=== PATIENT | male | born 1945 | race Caucasian/White ===

== ENCOUNTER 2021-06-03 05:48 | Inpatient (IN) ==
[2021-06-03] MEDS ORDERED: Naloxone 0.4 MG/ML INJ IVP PRN (09:45)
[2021-06-03] MEDS ORDERED: Ondansetron 4 MG/2 ML VIAL IVP PRN (09:45)
[2021-06-03] MEDS ORDERED: Cefepime HCl 2,000 MG in Water for inj. (sterile) 20 ML IVP SCH (09:53)
[2021-06-03] MEDS ORDERED: Azithromycin 500 MG in 0.9 % Sodium Chloride 250 ML IVPB SCH (10:00)
[2021-06-03 11:30] LABS: Calcium 10.1 mg/dL (8.6-10.3); Potassium 5.7 mEq/L (3.5-5.1)
[2021-06-03] MEDS ORDERED: 0.9 % Sodium Chloride 250 ML IVC PRN (11:36)
[2021-06-03] MEDS ORDERED: *HR* Heparin 10,000 UNIT/10 ML VIAL IV PRN (11:36)
[2021-06-03] MEDS ORDERED: 0.9 % Sodium Chloride 1,000 ML ONE (11:41)
[2021-06-03] MEDS ORDERED: 0.9 % Sodium Chloride 1,000 ML PRIME SCH (11:45)
[2021-06-03 11:55] LABS: Hepatitis B Surface Antibody 397.34 mIU/mL
[2021-06-03 12:06] LABS: Hepatitis B Surface Antigen Nonreactive (Nonreactive)
[2021-06-03] MEDS ORDERED: D5% in Water 1,000 ML IVC PRN (12:09)
[2021-06-03] MEDS ORDERED: *HR* Dextrose 50 % in Water (Vial) 50 ML VIAL IVP PRN (12:09)
[2021-06-03] MEDS ORDERED: Dextrose Gel 15 GM/37.5 ML TUBE PO PRN ×2 (12:09)
[2021-06-03] MEDS: *HR* Heparin 5,000 UNIT/ML VIAL SQ SCH ×2 (17:00→22:24)
[2021-06-03] MEDS: Insulin LISPRO 300 UNITS/3 ML VIAL SUBQ SCH ×2 (17:01→20:36)
[2021-06-03] MEDS: Insulin DETEMIR 100 UNIT/ML X5UNITS SUBQ SCH (17:01)
[2021-06-03] MEDS: Acetaminophen 325 MG TABLET PO PRN (17:02)
[2021-06-03] MEDS: Melatonin 3 MG TABLET PO PRN (23:36)
[2021-06-04] MEDS: Acetaminophen 325 MG TABLET PO PRN ×2 (03:03→21:19)
[2021-06-04 03:12] LABS: Hematocrit 29.4 % (37.5-50.1); Mean Corpuscular HGB Conc 30.6 g/dL (31.6-35.5); Mean Corpuscular Hemoglobin 27.3 pg (28.0-33.3); Mean Corpuscular Volume 89.1 fL (83.0-100.0); Mean Platelet Volume 9.4 fL (9.4-12.4); Platelet Count 165 K/mcL (140-400); Red Cell Distribution Width 15.9 % (11.5-14.5); White Blood Count 8.9 K/mcL (4.3-11.1)
[2021-06-04 03:33] LABS: Calcium 9.6 mg/dL (8.6-10.3); Phosphorous 3.5 mg/dL (2.7-4.5); Potassium 4.4 mEq/L (3.5-5.1)
[2021-06-04] MEDS: *HR* Heparin 5,000 UNIT/ML VIAL SQ SCH ×3 (06:01→21:20)
[2021-06-04] MEDS: Piperacillin/Tazobactam 3.375 GM in 0.9 % Sodium Chloride Mini Bag 100 ML IVPB SCH ×2 (09:40→21:19)
[2021-06-04] MEDS: Renal Vitamin 1 CAP CAPSULE PO SCH (09:42)
[2021-06-04] MEDS: Insulin DETEMIR 100 UNIT/ML X5UNITS SUBQ SCH (10:09)
[2021-06-04] MEDS: Insulin LISPRO 300 UNITS/3 ML VIAL SUBQ SCH ×4 (10:28→21:20)
[2021-06-04] MEDS ORDERED: Azithromycin 500 MG in 0.9 % Sodium Chloride 250 ML IVPB SCH (15:00)
[2021-06-04] MEDS: Melatonin 3 MG TABLET PO PRN (21:19)
[2021-06-05] MEDS: Acetaminophen 325 MG TABLET PO PRN (03:28)
[2021-06-05] MEDS: *HR* Heparin 5,000 UNIT/ML VIAL SQ SCH ×3 (05:34→22:11)
[2021-06-05 05:50] LABS: Basophils % 0.5 %; Eosinophils # 0.1 K/mcL (0.0-0.6); Eosinophils % 1.6 %; Hemoglobin 8.9 g/dL (12.9-16.9); Immature Granulocytes % 0.2 % (0-4); Lymphocytes # 0.8 K/mcL (0.6-4.6); Lymphocytes % 14.5 %; Mean Corpuscular HGB Conc 31.8 g/dL (31.6-35.5); Mean Corpuscular Volume 88.1 fL (83.0-100.0); Mean Platelet Volume 9.6 fL (9.4-12.4); Monocytes # 0.5 K/mcL (0.0-1.3); Monocytes % 9.2 %; Neutrophils # 4.2 K/mcL (1.6-8.9); Platelet Count 152 K/mcL (140-400); Red Blood Count 3.18 M/mcL (4.19-5.50); Red Cell Distribution Width 15.7 % (11.5-14.5); White Blood Count 5.6 K/mcL (4.3-11.1)
[2021-06-05 06:09] LABS: Calcium 9.2 mg/dL (8.6-10.3); Potassium 4.6 mEq/L (3.5-5.1)
[2021-06-05] MEDS: Insulin LISPRO 300 UNITS/3 ML VIAL SUBQ SCH ×4 (07:24→20:29)
[2021-06-05] MEDS ORDERED: 0.9 % Sodium Chloride 250 ML IVC PRN (08:00)
[2021-06-05] MEDS ORDERED: *HR* Heparin 10,000 UNIT/10 ML VIAL IV PRN ×2 (08:00)
[2021-06-05] MEDS ORDERED: 0.9 % Sodium Chloride 1,000 ML PRIME SCH (08:00)
[2021-06-05] MEDS: Insulin DETEMIR 100 UNIT/ML X5UNITS SUBQ SCH (08:27)
[2021-06-05] MEDS: Renal Vitamin 1 CAP CAPSULE PO SCH (08:57)
[2021-06-05] MEDS ORDERED: amLODIPine 5 MG TABLET PO SCH (12:15)
[2021-06-05] MEDS: Piperacillin/Tazobactam 3.375 GM in 0.9 % Sodium Chloride Mini Bag 100 ML IVPB SCH (17:32)
[2021-06-06 03:57] LABS: Basophils % 0.7 %; Eosinophils # 0.1 K/mcL (0.0-0.6); Eosinophils % 1.2 %; Hematocrit 27.6 % (37.5-50.1); Hemoglobin 8.5 g/dL (12.9-16.9); Immature Granulocytes % 0.5 % (0-4); Lymphocytes # 0.6 K/mcL (0.6-4.6); Lymphocytes % 13.8 %; Mean Corpuscular HGB Conc 30.8 g/dL (31.6-35.5); Mean Corpuscular Hemoglobin 27.2 pg (28.0-33.3); Mean Corpuscular Volume 88.2 fL (83.0-100.0); Mean Platelet Volume 9.6 fL (9.4-12.4); Monocytes # 0.3 K/mcL (0.0-1.3); Monocytes % 7.5 %; Neutrophils # 3.1 K/mcL (1.6-8.9); Nucleated Red Blood Cells 0.5 /100 WBC (0); Platelet Count 159 K/mcL (140-400); Red Blood Count 3.13 M/mcL (4.19-5.50); Red Cell Distribution Width 15.6 % (11.5-14.5); Segmented Neutrophils % 76.3 %; White Blood Count 4.1 K/mcL (4.3-11.1)
[2021-06-06 04:15] LABS: Calcium 9.1 mg/dL (8.6-10.3); Magnesium 1.9 mg/dL (1.6-2.6); Potassium 4.9 mEq/L (3.5-5.1)
[2021-06-06] MEDS: Piperacillin/Tazobactam 3.375 GM in 0.9 % Sodium Chloride Mini Bag 100 ML IVPB SCH ×2 (05:08→06:42)
[2021-06-06] MEDS: *HR* Heparin 5,000 UNIT/ML VIAL SQ SCH ×2 (05:09→15:25)
[2021-06-06] MEDS: Acetaminophen 325 MG TABLET PO PRN (05:13)
[2021-06-06] MEDS: Insulin LISPRO 300 UNITS/3 ML VIAL SUBQ SCH ×2 (08:50→12:21)
[2021-06-06] MEDS: Renal Vitamin 1 CAP CAPSULE PO SCH (08:51)
[2021-06-06] MEDS: Insulin DETEMIR 100 UNIT/ML X5UNITS SUBQ SCH (08:51)
[2021-06-06] MEDS ORDERED: amLODIPine 5 MG TABLET PO SCH (09:00)
[2021-06-06 10:57] VITALS: BP 137/50
[2021-06-06] MEDS ORDERED: Tdap (Boostrix) Vaccine 0.5 ML SYRINGE IM ONE (11:09)
== END 2021-06-06 16:20 | disposition home health service (06) | DRG 871 ==
LOC: 2ANU → SUATTDRO 06-04 16:51
PROVIDERS: ADMIT Student in an Organized Health Care Education/Training Program; ATTEND Internal Medicine

== ENCOUNTER 2021-09-16 01:47 | Inpatient (IN) ==
[2021-09-16] MEDS ORDERED: Naloxone 0.4 MG/ML INJ IVP PRN ×2 (04:57→11:26)
[2021-09-16] MEDS ORDERED: Melatonin 3 MG TABLET PO PRN (04:57)
[2021-09-16] MEDS ORDERED: Ondansetron ODT 4 MG TAB.RAPDIS SL PRN (04:57)
[2021-09-16] MEDS ORDERED: Isovue-370 500 ML BOTTLE IVP ONE (05:35)
[2021-09-16] MEDS ORDERED: Ondansetron 4 MG/2 ML VIAL IVP PRN (05:43)
[2021-09-16] MEDS ORDERED: Dextrose Gel 15 GM/37.5 ML TUBE PO PRN ×2 (05:58)
[2021-09-16] MEDS ORDERED: *HR* Dextrose 50 % in Water (Syg) 50 ML SYRINGE IVP PRN (05:58)
[2021-09-16] MEDS ORDERED: D5% in Water 1,000 ML IVC PRN (05:58)
[2021-09-16 06:25] LABS: Hematocrit 30.6 % (37.5-50.1); Hemoglobin 9.5 g/dL (12.9-16.9); Mean Corpuscular Hemoglobin 27.4 pg (28.0-33.3); Mean Corpuscular Volume 88.2 fL (83.0-100.0); Mean Platelet Volume 9.3 fL (9.4-12.4); Platelet Count 176 K/mcL (140-400); Red Blood Count 3.47 M/mcL (4.19-5.50); Red Cell Distribution Width 16.4 % (11.5-14.5); White Blood Count 13.4 K/mcL (4.3-11.1)
[2021-09-16 06:34] LABS: INR 1.4; Prothrombin Time 15.6 Seconds (9.4-12.1)
[2021-09-16 06:36] LABS: Activated Partial Thrombo Time 36.3 Seconds (26.0-36.0)
[2021-09-16 06:44] LABS: Magnesium 1.9 mg/dL (1.6-2.6); Phosphorous 5.6 mg/dL (2.7-4.5)
[2021-09-16 06:45] LABS: Calcium 9.2 mg/dL (8.6-10.3); Potassium 5.9 mEq/L (3.5-5.1)
[2021-09-16] MEDS ORDERED: Calcium Gluconate 1gm/50mL 1 GM/50 ML BAG IVPB ONE (07:41)
[2021-09-16] MEDS ORDERED: Ipratropium/Albuterol Neb 3 ML IH PRN (07:51)
[2021-09-16] MEDS: Insulin LISPRO 300 UNITS/3 ML VIAL SUBQ SCH ×3 (07:55→17:29)
[2021-09-16] MEDS ORDERED: 0.9 % Sodium Chloride 250 ML IVC PRN (08:29)
[2021-09-16] MEDS ORDERED: 0.9 % Sodium Chloride 1,000 ML PRIME SCH (08:30)
[2021-09-16] MEDS ORDERED: Albumin 25% 25gram/100mL 25 GM/100 ML IV.SOLN IVPB STA (10:26)
[2021-09-16] MEDS ORDERED: cefTRIAXone 2,000 MG in Water for inj. (sterile) 20 ML IVP SCH (11:00)
[2021-09-16] MEDS ORDERED: *HR* HYDROcodone/Acet 5/325 mg TABLET PO PRN (11:26)
[2021-09-16] MEDS ORDERED: Acetaminophen 325 MG TABLET PO PRN (11:26)
[2021-09-16] MEDS ORDERED: *HR* OxyCODONE Immed Rel 5 MG TABLET PO PRN (11:26)
[2021-09-16] MEDS ORDERED: MetroNIDAZOLE 500 MG/100 ML 500 MG/100 ML BAG IVPB SCH (12:00)
[2021-09-16] MEDS ORDERED: Albumin 25% 25gram/100mL 25 GM/100 ML IV.SOLN IVPB PRN (13:15)
[2021-09-16 13:20] LABS: Basophils % 0.2 %; Immature Granulocytes % 0.6 % (0-4); Lymphocytes # 0.2 K/mcL (0.6-4.6); Lymphocytes % 1.7 %; Monocytes # 0.6 K/mcL (0.0-1.3); Monocytes % 4.4 %; Neutrophils # 12.7 K/mcL (1.6-8.9); Segmented Neutrophils % 93.1 %
[2021-09-16 13:24] LABS: Immature Reticulocyte % 23.4 % (11.0-38.0); Reticulocyte % 2.8 % (1.6-2.8)
[2021-09-16 13:35] LABS: Uric Acid 3.1 mg/dL (2.3-7.6)
[2021-09-16] MEDS: cefTRIAXone 1,000 MG in Water for inj. (sterile) 10 ML IVP SCH (14:50)
[2021-09-16 16:40] LABS: RBC,Peritoneal Fluid < 2000 RBC/mcL
[2021-09-16 16:59] LABS: Total Protein,Peritoneal Fluid 4.4 g/dL
[2021-09-16] MEDS: MetroNIDAZOLE 500 MG/100 ML 500 MG/100 ML BAG IVPB SCH (17:14)
[2021-09-16 17:31] LABS: Basophils,Peritoneal Fluid 0 %
[2021-09-16 17:32] LABS: Appearance of Peritoneal Fl CLEAR (Clear)
[2021-09-16 19:56] LABS: Adenovirus Not Detected (Not Detect); Bordetella Pertussis Not Detected (Not Detect); Chlamydophila pneumoniae Not Detected (Not Detect); Coronavirus 229E Not Detected (Not Detect); Coronavirus HKU1 Not Detected (Not Detect); Coronavirus NL63 Not Detected (Not Detect); Coronavirus OC43 Not Detected (Not Detect); Human Metapneumovirus Not Detected (Not Detect); Human Rhinovirus/Enterovirus Not Detected (Not Detect); Influenza A Subtype 2009 H1 Not Detected (Not Detect); Influenza B Not Detected (Not Detect); Parainfluenza Virus 1 Not Detected (Not Detect); Parainfluenza Virus 2 Not Detected (Not Detect); Parainfluenza Virus 3 Not Detected (Not Detect); Parainfluenza Virus 4 Not Detected (Not Detect); Respiratory Syncytial Virus Not Detected (Not Detect); SARS-CoV-2 Not Detected (Not Detect)
[2021-09-16 19:57] LABS: Mycoplasma pneumoniae Not Detected (Not Detect)
[2021-09-17] MEDS: Insulin LISPRO 300 UNITS/3 ML VIAL SUBQ SCH ×5 (04:41→21:43)
[2021-09-17] MEDS: MetroNIDAZOLE 500 MG/100 ML 500 MG/100 ML BAG IVPB SCH ×2 (04:45→08:22)
[2021-09-17 07:03] LABS: Basophils % 0.4 %; Eosinophils # 0.1 K/mcL (0.0-0.6); Eosinophils % 1.3 %; Hematocrit 27.2 % (37.5-50.1); Hemoglobin 8.5 g/dL (12.9-16.9); Immature Granulocytes % 0.4 % (0-4); Lymphocytes # 0.7 K/mcL (0.6-4.6); Lymphocytes % 10.6 %; Mean Corpuscular HGB Conc 31.3 g/dL (31.6-35.5); Mean Corpuscular Hemoglobin 27.5 pg (28.0-33.3); Mean Platelet Volume 9.2 fL (9.4-12.4); Monocytes # 0.5 K/mcL (0.0-1.3); Monocytes % 7.7 %; Neutrophils # 5.5 K/mcL (1.6-8.9); Platelet Count 148 K/mcL (140-400); Red Blood Count 3.09 M/mcL (4.19-5.50); Red Cell Distribution Width 16.3 % (11.5-14.5); Segmented Neutrophils % 79.6 %; White Blood Count 6.9 K/mcL (4.3-11.1)
[2021-09-17 07:06] LABS: INR 1.5; Prothrombin Time 16.2 Seconds (9.4-12.1)
[2021-09-17 07:08] LABS: Activated Partial Thrombo Time 33.6 Seconds (26.0-36.0)
[2021-09-17 07:18] LABS: Calcium 9.2 mg/dL (8.6-10.3); Potassium 4.5 mEq/L (3.5-5.1)
[2021-09-17] MEDS: cefTRIAXone 1,000 MG in Water for inj. (sterile) 10 ML IVP SCH (08:21)
[2021-09-17] MEDS: Bicalutamide 50 MG TABLET PO SCH (12:59)
[2021-09-17] MEDS ORDERED: Gadolinium Contrast Agent (WT Based) IV PRN (14:42)
[2021-09-18 01:10] LABS: Basophils % 0.3 %; Eosinophils # 0.1 K/mcL (0.0-0.6); Eosinophils % 1.4 %; Hemoglobin 8.7 g/dL (12.9-16.9); Immature Granulocytes % 0.2 % (0-4); Lymphocytes # 0.6 K/mcL (0.6-4.6); Lymphocytes % 10.1 %; Mean Corpuscular HGB Conc 31.1 g/dL (31.6-35.5); Mean Corpuscular Hemoglobin 27.2 pg (28.0-33.3); Mean Corpuscular Volume 87.5 fL (83.0-100.0); Mean Platelet Volume 9.6 fL (9.4-12.4); Monocytes # 0.4 K/mcL (0.0-1.3); Monocytes % 6.1 %; Neutrophils # 5.2 K/mcL (1.6-8.9); Platelet Count 158 K/mcL (140-400); Red Cell Distribution Width 16.2 % (11.5-14.5); Segmented Neutrophils % 81.9 %; White Blood Count 6.4 K/mcL (4.3-11.1)
[2021-09-18 01:59] LABS: Calcium 8.8 mg/dL (8.6-10.3); Potassium 5.1 mEq/L (3.5-5.1)
[2021-09-18] MEDS: Insulin LISPRO 300 UNITS/3 ML VIAL SUBQ SCH ×4 (07:50→20:32)
[2021-09-18] MEDS: Bicalutamide 50 MG TABLET PO SCH (07:52)
[2021-09-18] MEDS ORDERED: 0.9 % Sodium Chloride 250 ML IVC PRN (08:30)
[2021-09-18] MEDS ORDERED: levoFLOXacin 750 MG/150 ML 750 MG/150 ML BAG IVPB SCH (09:00)
[2021-09-18] MEDS: cefTRIAXone 1,000 MG in Water for inj. (sterile) 10 ML IVP SCH ×2 (09:42→09:48)
[2021-09-18 10:46] LABS: AFP Tumor Marker Non-Pregnant 2 ng/mL (0-9); Cancer Antigen-GI (CA 19-9) 36 U/mL (0-37)
[2021-09-18] MEDS: hydrALAZINE 25 MG TABLET PO PRN ×2 (12:15→23:22)
[2021-09-18] MEDS ORDERED: levoFLOXacin 500 MG/100 ML 500 MG/100 ML BAG IVPB SCH (16:00)
[2021-09-18 22:48] LABS: Lambda Qnt Free Light Chains 151.73 mg/L (5.71-26.30)
[2021-09-19 01:01] LABS: Basophils % 0.5 %; Eosinophils # 0.1 K/mcL (0.0-0.6); Eosinophils % 1.3 %; Hematocrit 29.6 % (37.5-50.1); Hemoglobin 9.3 g/dL (12.9-16.9); Immature Granulocytes % 0.5 % (0-4); Lymphocytes # 0.5 K/mcL (0.6-4.6); Lymphocytes % 12.8 %; Mean Corpuscular HGB Conc 31.4 g/dL (31.6-35.5); Mean Corpuscular Hemoglobin 27.4 pg (28.0-33.3); Mean Corpuscular Volume 87.1 fL (83.0-100.0); Monocytes # 0.3 K/mcL (0.0-1.3); Monocytes % 6.9 %; Neutrophils # 3.1 K/mcL (1.6-8.9); Platelet Count 161 K/mcL (140-400); Red Cell Distribution Width 15.9 % (11.5-14.5); White Blood Count 3.9 K/mcL (4.3-11.1)
[2021-09-19 01:22] LABS: Albumin 3.5 g/dL (3.5-5.7); Albumin/Globulin Ratio 1.2 (1.1-2.2); Bilirubin,Total 0.6 mg/dL (0.3-1.0); Calcium 8.8 mg/dL (8.6-10.3); Potassium 4.5 mEq/L (3.5-5.1); Total Protein 6.5 g/dL (6.4-8.9)
[2021-09-19] MEDS ORDERED: hydrALAZINE 10 MG TABLET PO ONE (05:29)
[2021-09-19] MEDS: Bicalutamide 50 MG TABLET PO SCH (08:00)
[2021-09-19] MEDS: cefTRIAXone 1,000 MG in Water for inj. (sterile) 10 ML IVP SCH (08:00)
[2021-09-19] MEDS: Insulin LISPRO 300 UNITS/3 ML VIAL SUBQ SCH ×3 (08:03→15:55)
[2021-09-19] MEDS ORDERED: Renal Vitamin 1 CAP CAPSULE PO SCH (09:00)
[2021-09-19 11:15] LABS: Kappa Qnt Free Light Chains 167.47 mg/L (3.30-19.40)
[2021-09-19] MEDS ORDERED: cefTRIAXone 1,000 MG in 0.9 % Sodium Chloride Mini Bag 100 ML IVPB ONE (12:00)
[2021-09-19] MEDS ORDERED: Isovue-370 500 ML BOTTLE IVP ONE (14:32)
[2021-09-19] MEDS: hydrALAZINE 25 MG TABLET PO PRN (15:51)
[2021-09-19 15:55] VITALS: BP 195/85; PULSE 73; TEMP 98; O2SAT 100
[2021-09-20] MEDS ORDERED: Cefepime HCl 2,000 MG in 0.9 % Sodium Chloride Mini Bag 100 ML IVPB SCH (16:00)
[2021-09-21 03:41] LABS: Alpha 2 Globulin (PEP) 0.63 g/dL (0.48-1.05); Beta Globulin (PEP) 0.53 g/dL (0.48-1.10)
[2021-09-21 10:03] LABS: IFE Reflexed IFE Done; Immunoglobulin A 142 mg/dL (68-408); Immunoglobulin G 1128 mg/dL (768-1632); Immunoglobulin M 142 mg/dL (35-263)
== END 2021-09-19 17:56 | disposition home or self-care (01) | DRG 871 ==
LOC: 2ANU → SUATTDRO 03:35
PROVIDERS: ADMIT Internal Medicine; ATTEND Internal Medicine

== ENCOUNTER 2021-12-04 09:11 | Inpatient (IN) ==
[2021-12-04 11:30] LABS: Basophils % 0.3 %; Eosinophils % 0.4 %; Hematocrit 33.8 % (37.5-50.1); Hemoglobin 10.6 g/dL (12.9-16.9); Immature Granulocytes % 0.4 % (0-4); Lymphocytes # 0.6 K/mcL (0.6-4.6); Lymphocytes % 7.9 %; Mean Corpuscular HGB Conc 31.4 g/dL (31.6-35.5); Mean Corpuscular Hemoglobin 27.8 pg (28.0-33.3); Mean Corpuscular Volume 88.7 fL (83.0-100.0); Mean Platelet Volume 9.7 fL (9.4-12.4); Monocytes # 0.5 K/mcL (0.0-1.3); Monocytes % 7.3 %; Neutrophils # 6.1 K/mcL (1.6-8.9); Platelet Count 209 K/mcL (140-400); Red Blood Count 3.81 M/mcL (4.19-5.50); Segmented Neutrophils % 83.7 %; White Blood Count 7.3 K/mcL (4.3-11.1)
[2021-12-04 11:44] LABS: INR 1.2; Prothrombin Time 13.6 Seconds (9.4-12.1)
[2021-12-04 11:47] LABS: Activated Partial Thrombo Time 34.5 Seconds (26.0-36.0)
[2021-12-04 11:55] LABS: Calcium 9.1 mg/dL (8.6-10.3); Potassium 5.7 mEq/L (3.5-5.1)
[2021-12-04] MEDS ORDERED: Naloxone 0.4 MG/ML INJ IVP PRN (11:55)
[2021-12-04] MEDS ORDERED: *HR* Dextrose 50 % in Water (Syg) 50 ML SYRINGE IVP PRN (11:59)
[2021-12-04] MEDS ORDERED: D5% in Water 1,000 ML IVC PRN (11:59)
[2021-12-04] MEDS ORDERED: Dextrose Gel 15 GM/37.5 ML TUBE PO PRN ×2 (11:59)
[2021-12-04] MEDS ORDERED: Albumin 25% 25gram/100mL 25 GM/100 ML IV.SOLN IVPB PRN (14:09)
[2021-12-04] MEDS ORDERED: 0.9 % Sodium Chloride 250 ML IVC PRN (14:09)
[2021-12-04] MEDS ORDERED: 0.9 % Sodium Chloride 1,000 ML PRIME SCH (14:15)
[2021-12-04] MEDS ORDERED: Vancomycin 1,500 MG/265 ML IV.SOLN IVPB ONE (15:00)
[2021-12-04] MEDS ORDERED: Piperacillin/Tazobactam 3.375 GM in 0.9 % Sodium Chloride Mini Bag 100 ML IVPB SCH (15:00)
[2021-12-04] MEDS: *HR* Heparin 5,000 UNIT/ML VIAL SQ SCH ×2 (17:18→23:23)
[2021-12-04] MEDS: Insulin LISPRO 300 UNITS/3 ML VIAL SUBQ SCH ×2 (18:00→21:34)
[2021-12-04 20:53] LABS: Hepatitis B Surface Antibody 53.41 mIU/mL
[2021-12-04 21:02] LABS: Hepatitis B Surface Antigen Nonreactive (Nonreactive)
[2021-12-04] MEDS: Piperacillin/Tazobactam 3.375 GM in 0.9 % Sodium Chloride Mini Bag 100 ML IVPB SCH (22:03)
[2021-12-05 06:20] LABS: Basophils % 0.4 %; Eosinophils # 0.1 K/mcL (0.0-0.6); Eosinophils % 1.2 %; Hematocrit 27.7 % (37.5-50.1); Immature Granulocytes % 0.4 % (0-4); Lymphocytes # 0.7 K/mcL (0.6-4.6); Lymphocytes % 13.2 %; Mean Corpuscular Hemoglobin 27.4 pg (28.0-33.3); Mean Corpuscular Volume 88.2 fL (83.0-100.0); Mean Platelet Volume 9.7 fL (9.4-12.4); Monocytes # 0.5 K/mcL (0.0-1.3); Monocytes % 9.1 %; Neutrophils # 3.7 K/mcL (1.6-8.9); Platelet Count 190 K/mcL (140-400); Red Blood Count 3.14 M/mcL (4.19-5.50); Red Cell Distribution Width 14.9 % (11.5-14.5); Segmented Neutrophils % 75.7 %; White Blood Count 4.9 K/mcL (4.3-11.1)
[2021-12-05 06:22] LABS: Hemoglobin 8.6 g/dL (12.9-16.9)
[2021-12-05 06:24] LABS: Calcium 8.7 mg/dL (8.6-10.3); Potassium 4.8 mEq/L (3.5-5.1)
[2021-12-05] MEDS: Insulin LISPRO 300 UNITS/3 ML VIAL SUBQ SCH ×4 (08:18→23:40)
[2021-12-05] MEDS: Piperacillin/Tazobactam 3.375 GM in 0.9 % Sodium Chloride Mini Bag 100 ML IVPB SCH ×2 (08:19→20:07)
[2021-12-05] MEDS: *HR* Heparin 5,000 UNIT/ML VIAL SQ SCH ×2 (08:19→15:16)
[2021-12-05] MEDS: amLODIPine 5 MG TABLET PO SCH (17:42)
[2021-12-06] MEDS: *HR* Heparin 5,000 UNIT/ML VIAL SQ SCH ×4 (04:21→23:00)
[2021-12-06] MEDS ORDERED: Vancomycin 1,000 MG, 0.9 % Sodium Chloride 1,000 ML IR ONE (06:00)
[2021-12-06] MEDS ORDERED: 0.9 % Sodium Chloride 250 ML IVC PRN (07:40)
[2021-12-06 08:48] LABS: Basophils % 0.3 %; Eosinophils # 0.1 K/mcL (0.0-0.6); Eosinophils % 0.9 %; Hematocrit 28.2 % (37.5-50.1); Hemoglobin 8.8 g/dL (12.9-16.9); Immature Granulocytes % 0.3 % (0-4); Lymphocytes # 0.9 K/mcL (0.6-4.6); Lymphocytes % 12.4 %; Mean Corpuscular HGB Conc 31.2 g/dL (31.6-35.5); Mean Corpuscular Hemoglobin 27.6 pg (28.0-33.3); Mean Corpuscular Volume 88.4 fL (83.0-100.0); Mean Platelet Volume 9.7 fL (9.4-12.4); Monocytes # 0.7 K/mcL (0.0-1.3); Monocytes % 9.4 %; Neutrophils # 5.4 K/mcL (1.6-8.9); Platelet Count 197 K/mcL (140-400); Red Blood Count 3.19 M/mcL (4.19-5.50); Segmented Neutrophils % 76.7 %
[2021-12-06] MEDS: Piperacillin/Tazobactam 3.375 GM in 0.9 % Sodium Chloride Mini Bag 100 ML IVPB SCH ×2 (09:01→21:07)
[2021-12-06] MEDS: Insulin LISPRO 300 UNITS/3 ML VIAL SUBQ SCH ×4 (09:01→20:41)
[2021-12-06] MEDS: amLODIPine 5 MG TABLET PO SCH (09:01)
[2021-12-06 09:11] LABS: Calcium 8.8 mg/dL (8.6-10.3); Potassium 5.2 mEq/L (3.5-5.1)
[2021-12-06] MEDS ORDERED: *HR* Heparin 10,000 UNIT/10 ML VIAL ONE (13:29)
[2021-12-06] MEDS ORDERED: 0.9 % Sodium Chloride 1,000 ML ONE ×3 (13:29→18:26)
[2021-12-06] MEDS ORDERED: Heparin 1,000 UNITS/500 mL 500 ML ONE ×2 (13:29→15:20)
[2021-12-06] MEDS ORDERED: *HR* Midazolam HCl 2 MG/2 ML VIAL ONE (14:09)
[2021-12-06] MEDS ORDERED: *HR* FentaNYL (PF) 100 MCG/2 ML VIAL ONE (14:09)
[2021-12-06] MEDS ORDERED: Acetaminophen 325 MG TABLET PO PRN (15:50)
[2021-12-06] MEDS ORDERED: *HR* HYDROcodone/Acet 5/325 mg TABLET PO PRN (15:50)
[2021-12-06] MEDS ORDERED: Vancomycin 1,500 MG/265 ML IV.SOLN IVPB ONE (16:00)
[2021-12-06] MEDS ORDERED: *HR* Labetalol 20 MG/4 ML SYRINGE IVP ONE (17:48)
[2021-12-06] MEDS ORDERED: *HR* Atropine Sulfate 1 MG/10 ML SYRINGE ONE (18:26)
[2021-12-07 01:13] LABS: Basophils % 0.4 %; Eosinophils % 0.8 %; Hematocrit 27.6 % (37.5-50.1); Hemoglobin 8.9 g/dL (12.9-16.9); Immature Granulocytes % 0.2 % (0-4); Lymphocytes # 0.6 K/mcL (0.6-4.6); Lymphocytes % 11.6 %; Mean Corpuscular HGB Conc 32.2 g/dL (31.6-35.5); Mean Corpuscular Hemoglobin 28.4 pg (28.0-33.3); Mean Corpuscular Volume 88.2 fL (83.0-100.0); Mean Platelet Volume 9.5 fL (9.4-12.4); Monocytes # 0.4 K/mcL (0.0-1.3); Monocytes % 8.2 %; Neutrophils # 3.9 K/mcL (1.6-8.9); Platelet Count 180 K/mcL (140-400); Red Blood Count 3.13 M/mcL (4.19-5.50); Red Cell Distribution Width 14.8 % (11.5-14.5); Segmented Neutrophils % 78.8 %
[2021-12-07 01:31] LABS: Calcium 8.4 mg/dL (8.6-10.3); Potassium 4.2 mEq/L (3.5-5.1)
[2021-12-07] MEDS: *HR* Heparin 5,000 UNIT/ML VIAL SQ SCH ×2 (08:35→16:57)
[2021-12-07] MEDS: amLODIPine 5 MG TABLET PO SCH (08:44)
[2021-12-07] MEDS: Insulin LISPRO 300 UNITS/3 ML VIAL SUBQ SCH ×4 (08:46→20:11)
[2021-12-07] MEDS: Piperacillin/Tazobactam 3.375 GM in 0.9 % Sodium Chloride Mini Bag 100 ML IVPB SCH ×2 (08:46→20:10)
[2021-12-07] MEDS: Aspirin 81 MG TAB.CHEW PO SCH (13:15)
[2021-12-07] MEDS: hydrALAZINE 25 MG TABLET PO SCH (17:46)
[2021-12-08] MEDS: *HR* Heparin 5,000 UNIT/ML VIAL SQ SCH ×3 (00:33→16:43)
[2021-12-08] MEDS: hydrALAZINE 25 MG TABLET PO SCH ×3 (00:33→16:42)
[2021-12-08] MEDS: Aspirin 81 MG TAB.CHEW PO SCH (08:16)
[2021-12-08] MEDS: amLODIPine 5 MG TABLET PO SCH ×2 (08:16→08:21)
[2021-12-08] MEDS: Insulin LISPRO 300 UNITS/3 ML VIAL SUBQ SCH ×4 (08:17→20:06)
[2021-12-08] MEDS: Piperacillin/Tazobactam 3.375 GM in 0.9 % Sodium Chloride Mini Bag 100 ML IVPB SCH ×2 (08:18→20:50)
[2021-12-09] MEDS: *HR* Heparin 5,000 UNIT/ML VIAL SQ SCH ×4 (00:45→23:38)
[2021-12-09] MEDS: hydrALAZINE 25 MG TABLET PO SCH ×4 (00:45→23:38)
[2021-12-09] MEDS: Insulin LISPRO 300 UNITS/3 ML VIAL SUBQ SCH ×4 (07:17→21:08)
[2021-12-09] MEDS ORDERED: 0.9 % Sodium Chloride 250 ML IVC PRN ×2 (07:23→18:24)
[2021-12-09 08:20] LABS: Hematocrit 26.9 % (37.5-50.1); Hemoglobin 8.5 g/dL (12.9-16.9); Mean Corpuscular HGB Conc 31.6 g/dL (31.6-35.5); Mean Corpuscular Hemoglobin 27.3 pg (28.0-33.3); Mean Corpuscular Volume 86.5 fL (83.0-100.0); Mean Platelet Volume 9.3 fL (9.4-12.4); Platelet Count 205 K/mcL (140-400); Red Blood Count 3.11 M/mcL (4.19-5.50); Red Cell Distribution Width 14.8 % (11.5-14.5); White Blood Count 5.2 K/mcL (4.3-11.1)
[2021-12-09 08:37] LABS: Calcium 8.4 mg/dL (8.6-10.3); Potassium 5.1 mEq/L (3.5-5.1)
[2021-12-09] MEDS: amLODIPine 5 MG TABLET PO SCH (08:59)
[2021-12-09] MEDS: Aspirin 81 MG TAB.CHEW PO SCH (08:59)
[2021-12-09] MEDS: Piperacillin/Tazobactam 3.375 GM in 0.9 % Sodium Chloride Mini Bag 100 ML IVPB SCH (09:00)
[2021-12-09] MEDS ORDERED: Piperacillin/Tazobactam 3.375 GM in 0.9 % Sodium Chloride Mini Bag 100 ML IVPB SCH (15:00)
[2021-12-09] MEDS ORDERED: Vancomycin 1,500 MG/265 ML IV.SOLN IVPB ONE (16:00)
[2021-12-09] MEDS ORDERED: *HR* FentaNYL (PF) 100 MCG/2 ML VIAL ONE (16:18)
[2021-12-09] MEDS ORDERED: Lidocaine -MPF 2% 5 ML VIAL ONE (16:19)
[2021-12-09] MEDS ORDERED: Bupivacaine/EPI 1:200k 0.25% 50 ML VIAL ONE (16:26)
[2021-12-09] MEDS ORDERED: *HR* Propofol 200 MG/20 ML VIAL IVP ONE (16:39)
[2021-12-09] MEDS ORDERED: Vancomycin 1,000 MG VIAL ONE (16:58)
[2021-12-09] MEDS ORDERED: Lidocaine 1% 20 ML MDV ONE (16:58)
[2021-12-09] MEDS ORDERED: 0.9 % Sodium Chloride 1,000 ML PRIME SCH (18:24)
[2021-12-09] MEDS ORDERED: D5% in Water 1,000 ML IVC PRN (18:24)
[2021-12-09] MEDS ORDERED: Dextrose Gel 15 GM/37.5 ML TUBE PO PRN ×2 (18:24)
[2021-12-09] MEDS ORDERED: Naloxone 0.4 MG/ML INJ IVP PRN (18:24)
[2021-12-09] MEDS: Acetaminophen 325 MG TABLET PO PRN (23:44)
[2021-12-10] MEDS: Piperacillin/Tazobactam 3.375 GM in 0.9 % Sodium Chloride Mini Bag 100 ML IVPB SCH ×2 (02:59→14:34)
[2021-12-10 06:18] LABS: Basophils % 0.4 %; Eosinophils # 0.1 K/mcL (0.0-0.6); Eosinophils % 0.9 %; Hematocrit 25.4 % (37.5-50.1); Hemoglobin 7.8 g/dL (12.9-16.9); Immature Granulocytes % 0.4 % (0-4); Lymphocytes # 0.5 K/mcL (0.6-4.6); Lymphocytes % 8.4 %; Mean Corpuscular HGB Conc 30.7 g/dL (31.6-35.5); Mean Corpuscular Hemoglobin 27.6 pg (28.0-33.3); Mean Corpuscular Volume 89.8 fL (83.0-100.0); Mean Platelet Volume 9.2 fL (9.4-12.4); Monocytes # 0.5 K/mcL (0.0-1.3); Monocytes % 9.7 %; Neutrophils # 4.3 K/mcL (1.6-8.9); Platelet Count 187 K/mcL (140-400); Red Blood Count 2.83 M/mcL (4.19-5.50); Red Cell Distribution Width 14.9 % (11.5-14.5); Segmented Neutrophils % 80.2 %; White Blood Count 5.3 K/mcL (4.3-11.1)
[2021-12-10 07:19] LABS: Calcium 7.4 mg/dL (8.6-10.3); Potassium 4.4 mEq/L (3.5-5.1)
[2021-12-10] MEDS: Insulin LISPRO 300 UNITS/3 ML VIAL SUBQ SCH ×4 (08:15→21:54)
[2021-12-10] MEDS: amLODIPine 5 MG TABLET PO SCH (08:19)
[2021-12-10] MEDS: Aspirin 81 MG TAB.CHEW PO SCH (08:19)
[2021-12-10] MEDS: *HR* Heparin 5,000 UNIT/ML VIAL SQ SCH ×2 (08:19→15:42)
[2021-12-10] MEDS: hydrALAZINE 25 MG TABLET PO SCH ×2 (08:19→15:42)
[2021-12-10] MEDS: Insulin DETEMIR 100 UNIT/ML X5UNITS SUBQ SCH (21:58)
[2021-12-11] MEDS: *HR* Heparin 5,000 UNIT/ML VIAL SQ SCH ×3 (01:30→18:12)
[2021-12-11] MEDS: hydrALAZINE 25 MG TABLET PO SCH ×3 (01:30→18:12)
[2021-12-11] MEDS: Piperacillin/Tazobactam 3.375 GM in 0.9 % Sodium Chloride Mini Bag 100 ML IVPB SCH ×3 (03:05→18:29)
[2021-12-11] MEDS: Acetaminophen 325 MG TABLET PO PRN ×2 (04:22→12:36)
[2021-12-11] MEDS ORDERED: 0.9 % Sodium Chloride 250 ML IVC PRN (07:10)
[2021-12-11] MEDS: Insulin LISPRO 300 UNITS/3 ML VIAL SUBQ SCH ×4 (09:26→21:40)
[2021-12-11] MEDS: Aspirin 81 MG TAB.CHEW PO SCH (09:27)
[2021-12-11] MEDS: amLODIPine 5 MG TABLET PO SCH (09:28)
[2021-12-11 11:18] LABS: Basophils % 0.6 %; Eosinophils # 0.1 K/mcL (0.0-0.6); Eosinophils % 1.5 %; Hematocrit 24.9 % (37.5-50.1); Immature Granulocytes % 0.4 % (0-4); Lymphocytes # 0.8 K/mcL (0.6-4.6); Lymphocytes % 15.5 %; Mean Corpuscular HGB Conc 32.1 g/dL (31.6-35.5); Mean Corpuscular Hemoglobin 27.6 pg (28.0-33.3); Mean Corpuscular Volume 85.9 fL (83.0-100.0); Mean Platelet Volume 8.7 fL (9.4-12.4); Monocytes # 0.5 K/mcL (0.0-1.3); Monocytes % 10.3 %; Neutrophils # 3.8 K/mcL (1.6-8.9); Platelet Count 203 K/mcL (140-400); Red Cell Distribution Width 15.2 % (11.5-14.5); Segmented Neutrophils % 71.7 %; White Blood Count 5.2 K/mcL (4.3-11.1)
[2021-12-11 11:38] LABS: Calcium 8.2 mg/dL (8.6-10.3)
[2021-12-11 13:40] LABS: Estimated Average Glucose 240 mg/dl
[2021-12-11 21:30] LABS: Adenovirus F 40/41 PCR Not detected (Not detect); Astrovirus PCR Not detected (Not detect); C.difficile Toxin A/B Gene PCR Not detected (Not detect); Campylobacter by PCR Not detected (Not detect); Cryptosporidium by PCR Not detected (Not detect); Cyclospora cayetanensis PCR Not detected (Not detect); E. coli O157 by PCR Not detected (Not detect); Entamoeba histolytica PCR Not detected (Not detect); Enteroaggregative E.coli(EAEC) Not detected (Not detect); Enteropathogenic E.coli(EPEC) Not detected (Not detect); Enterotoxigenic E.coli (ETEC) Not detected (Not detect); Giardia lamblia PCR Not detected (Not detect); Norovirus GI/GII PCR Not detected (Not detect); Plesiomonas shigelloides PCR Not detected (Not detect); Rotavirus A PCR Not detected (Not detect); Salmonella PCR Not detected (Not detect); Sapovirus PCR Not detected (Not detect); Shig/EnteroinvasiveE coli EIEC Not detected (Not detect); Shigalike tox-prod E coli STEC Not detected (Not detect); Vibrio PCR Not detected (Not detect); Vibrio cholerae PCR Not detected (Not detect); Yersinia enterocolitica PCR Not detected (Not detect)
[2021-12-11] MEDS: Insulin DETEMIR 100 UNIT/ML X5UNITS SUBQ SCH (21:44)
[2021-12-12] MEDS: hydrALAZINE 25 MG TABLET PO SCH ×3 (01:59→16:43)
[2021-12-12] MEDS: *HR* Heparin 5,000 UNIT/ML VIAL SQ SCH ×4 (01:59→23:56)
[2021-12-12 02:46] LABS: Basophils % 0.6 %; Eosinophils # 0.1 K/mcL (0.0-0.6); Eosinophils % 1.9 %; Hematocrit 25.4 % (37.5-50.1); Hemoglobin 8.1 g/dL (12.9-16.9); Immature Granulocytes % 0.6 % (0-4); Lymphocytes # 0.6 K/mcL (0.6-4.6); Lymphocytes % 13.2 %; Mean Corpuscular HGB Conc 31.9 g/dL (31.6-35.5); Mean Corpuscular Hemoglobin 28.5 pg (28.0-33.3); Mean Corpuscular Volume 89.4 fL (83.0-100.0); Mean Platelet Volume 9.3 fL (9.4-12.4); Monocytes # 0.5 K/mcL (0.0-1.3); Monocytes % 10.3 %; Neutrophils # 3.5 K/mcL (1.6-8.9); Platelet Count 236 K/mcL (140-400); Red Blood Count 2.84 M/mcL (4.19-5.50); Segmented Neutrophils % 73.4 %; White Blood Count 4.8 K/mcL (4.3-11.1)
[2021-12-12 03:06] LABS: Calcium 8.3 mg/dL (8.6-10.3); Potassium 4.7 mEq/L (3.5-5.1)
[2021-12-12] MEDS: Piperacillin/Tazobactam 3.375 GM in 0.9 % Sodium Chloride Mini Bag 100 ML IVPB SCH ×2 (06:17→16:43)
[2021-12-12] MEDS: Insulin LISPRO 300 UNITS/3 ML VIAL SUBQ SCH ×3 (11:55→21:08)
[2021-12-12] MEDS: amLODIPine 5 MG TABLET PO SCH (11:56)
[2021-12-12] MEDS: Aspirin 81 MG TAB.CHEW PO SCH (11:56)
[2021-12-12] MEDS: Insulin DETEMIR 100 UNIT/ML X5UNITS SUBQ SCH (21:08)
[2021-12-13] MEDS: hydrALAZINE 25 MG TABLET PO SCH ×4 (00:10→23:48)
[2021-12-13] MEDS: Piperacillin/Tazobactam 3.375 GM in 0.9 % Sodium Chloride Mini Bag 100 ML IVPB SCH ×2 (05:16→17:31)
[2021-12-13 06:44] LABS: Basophils % 0.6 %; Eosinophils # 0.1 K/mcL (0.0-0.6); Eosinophils % 2.3 %; Hematocrit 23.3 % (37.5-50.1); Hemoglobin 7.3 g/dL (12.9-16.9); Immature Granulocytes % 0.6 % (0-4); Lymphocytes # 0.8 K/mcL (0.6-4.6); Lymphocytes % 15.9 %; Mean Corpuscular HGB Conc 31.3 g/dL (31.6-35.5); Mean Corpuscular Hemoglobin 27.2 pg (28.0-33.3); Mean Corpuscular Volume 86.9 fL (83.0-100.0); Mean Platelet Volume 8.9 fL (9.4-12.4); Monocytes # 0.5 K/mcL (0.0-1.3); Monocytes % 10.1 %; Neutrophils # 3.7 K/mcL (1.6-8.9); Platelet Count 216 K/mcL (140-400); Red Blood Count 2.68 M/mcL (4.19-5.50); Red Cell Distribution Width 15.3 % (11.5-14.5); Segmented Neutrophils % 70.5 %; White Blood Count 5.2 K/mcL (4.3-11.1)
[2021-12-13] MEDS ORDERED: 0.9 % Sodium Chloride 250 ML IVC PRN (06:54)
[2021-12-13 06:56] LABS: Calcium 8.3 mg/dL (8.6-10.3); Potassium 5.5 mEq/L (3.5-5.1)
[2021-12-13] MEDS ORDERED: 0.9 % Sodium Chloride 1,000 ML PRIME SCH (07:00)
[2021-12-13] MEDS: amLODIPine 5 MG TABLET PO SCH (08:15)
[2021-12-13] MEDS: Insulin LISPRO 300 UNITS/3 ML VIAL SUBQ SCH ×4 (08:16→20:30)
[2021-12-13] MEDS: Aspirin 81 MG TAB.CHEW PO SCH (08:16)
[2021-12-13] MEDS: *HR* Heparin 5,000 UNIT/ML VIAL SQ SCH (08:16)
[2021-12-13 10:50] LABS: Hematocrit 25.5 % (37.5-50.1); Hemoglobin 7.9 g/dL (12.9-16.9)
[2021-12-13] MEDS ORDERED: SODIUM CHLORIDE/NAHCO3/KCL/PEG 4,000 ML SOLN.RECON PO ONE (17:00)
[2021-12-13] MEDS: Pantoprazole 40 MG VIAL IVP SCH (17:31)
[2021-12-13 17:37] LABS: Hematocrit 24.8 % (37.5-50.1); Hemoglobin 7.8 g/dL (12.9-16.9)
[2021-12-13] MEDS ORDERED: *HR* Labetalol 20 MG/4 ML SYRINGE IVP ONE (20:15)
[2021-12-13] MEDS: Insulin DETEMIR 100 UNIT/ML X5UNITS SUBQ SCH (20:42)
[2021-12-13 22:51] LABS: Hematocrit 23.8 % (37.5-50.1); Hemoglobin 7.6 g/dL (12.9-16.9)
[2021-12-14] MEDS ORDERED: *HR* Labetalol 20 MG/4 ML SYRINGE IVP ONE (01:25)
[2021-12-14 03:26] LABS: Basophils % 0.8 %; Eosinophils # 0.1 K/mcL (0.0-0.6); Eosinophils % 2.2 %; Hematocrit 24.3 % (37.5-50.1); Hemoglobin 7.7 g/dL (12.9-16.9); Immature Granulocytes % 0.6 % (0-4); Lymphocytes # 0.7 K/mcL (0.6-4.6); Lymphocytes % 14.7 %; Mean Corpuscular HGB Conc 31.7 g/dL (31.6-35.5); Mean Corpuscular Hemoglobin 28.4 pg (28.0-33.3); Mean Corpuscular Volume 89.7 fL (83.0-100.0); Monocytes # 0.4 K/mcL (0.0-1.3); Monocytes % 7.8 %; Neutrophils # 3.7 K/mcL (1.6-8.9); Platelet Count 241 K/mcL (140-400); Red Blood Count 2.71 M/mcL (4.19-5.50); Red Cell Distribution Width 15.3 % (11.5-14.5); Segmented Neutrophils % 73.9 %
[2021-12-14 03:44] LABS: Calcium 8.8 mg/dL (8.6-10.3); Potassium 4.6 mEq/L (3.5-5.1)
[2021-12-14] MEDS: Piperacillin/Tazobactam 3.375 GM in 0.9 % Sodium Chloride Mini Bag 100 ML IVPB SCH ×2 (04:51→17:08)
[2021-12-14] MEDS: Pantoprazole 40 MG VIAL IVP SCH ×2 (04:52→17:07)
[2021-12-14] MEDS: Insulin LISPRO 300 UNITS/3 ML VIAL SUBQ SCH ×4 (07:53→22:00)
[2021-12-14] MEDS: amLODIPine 5 MG TABLET PO SCH (07:54)
[2021-12-14] MEDS: hydrALAZINE 25 MG TABLET PO SCH ×2 (07:54→17:07)
[2021-12-14] MEDS ORDERED: EPHEDrine 50 MG/ML VIAL ONE (08:42)
[2021-12-14] MEDS ORDERED: Lidocaine -MPF 2% 2 ML VIAL ONE (09:07)
[2021-12-14] MEDS: Insulin DETEMIR 100 UNIT/ML X5UNITS SUBQ SCH (22:03)
[2021-12-15] MEDS: hydrALAZINE 25 MG TABLET PO SCH ×3 (00:10→17:41)
[2021-12-15] MEDS: Pantoprazole 40 MG VIAL IVP SCH ×2 (05:07→17:41)
[2021-12-15] MEDS: Piperacillin/Tazobactam 3.375 GM in 0.9 % Sodium Chloride Mini Bag 100 ML IVPB SCH ×2 (05:09→17:41)
[2021-12-15] MEDS: Acetaminophen 325 MG TABLET PO PRN (05:35)
[2021-12-15] MEDS: Insulin LISPRO 300 UNITS/3 ML VIAL SUBQ SCH ×4 (08:54→21:06)
[2021-12-15] MEDS: amLODIPine 5 MG TABLET PO SCH (09:12)
[2021-12-15 09:51] LABS: Hematocrit 25.4 % (37.5-50.1); Hemoglobin 7.7 g/dL (12.9-16.9); Mean Corpuscular HGB Conc 30.3 g/dL (31.6-35.5); Mean Corpuscular Volume 89.1 fL (83.0-100.0); Mean Platelet Volume 8.8 fL (9.4-12.4); Platelet Count 238 K/mcL (140-400); Red Blood Count 2.85 M/mcL (4.19-5.50); Red Cell Distribution Width 15.7 % (11.5-14.5); White Blood Count 5.1 K/mcL (4.3-11.1)
[2021-12-15 10:00] LABS: INR 1.3; Prothrombin Time 14.3 Seconds (9.4-12.1)
[2021-12-15 10:03] LABS: Activated Partial Thrombo Time 39.2 Seconds (26.0-36.0)
[2021-12-15 10:12] LABS: Calcium 8.3 mg/dL (8.6-10.3); Potassium 5.5 mEq/L (3.5-5.1)
[2021-12-15] MEDS ORDERED: Perflutren Lipid Microsphere 1.3 ML in 0.9 % Sodium Chloride 8.7 ML IVP PRN (11:04)
[2021-12-15] MEDS: Insulin DETEMIR 100 UNIT/ML X5UNITS SUBQ SCH (21:06)
[2021-12-16] MEDS: hydrALAZINE 25 MG TABLET PO SCH ×3 (00:02→14:54)
[2021-12-16 02:59] LABS: Hematocrit 24.8 % (37.5-50.1); Hemoglobin 7.8 g/dL (12.9-16.9); Mean Corpuscular HGB Conc 31.5 g/dL (31.6-35.5); Mean Corpuscular Volume 88.9 fL (83.0-100.0); Mean Platelet Volume 8.6 fL (9.4-12.4); Platelet Count 220 K/mcL (140-400); Red Blood Count 2.79 M/mcL (4.19-5.50); Red Cell Distribution Width 15.9 % (11.5-14.5); White Blood Count 5.8 K/mcL (4.3-11.1)
[2021-12-16 03:21] LABS: Calcium 8.4 mg/dL (8.6-10.3); Potassium 5.7 mEq/L (3.5-5.1)
[2021-12-16] MEDS: Piperacillin/Tazobactam 3.375 GM in 0.9 % Sodium Chloride Mini Bag 100 ML IVPB SCH ×2 (05:07→21:45)
[2021-12-16] MEDS: Pantoprazole 40 MG VIAL IVP SCH ×2 (05:08→18:13)
[2021-12-16] MEDS: amLODIPine 5 MG TABLET PO SCH (07:47)
[2021-12-16] MEDS ORDERED: 0.9 % Sodium Chloride 250 ML IVC PRN (08:00)
[2021-12-16] MEDS: Insulin LISPRO 300 UNITS/3 ML VIAL SUBQ SCH ×4 (09:35→21:47)
[2021-12-16 13:51] LABS: Total Protein,Peritoneal Fluid 3.6 g/dL
[2021-12-16 14:33] LABS: RBC,Peritoneal Fluid 19000 RBC/mcL
[2021-12-16 14:44] LABS: Appearance of Peritoneal Fl HAZY (Clear)
[2021-12-16 15:24] LABS: Basophils,Peritoneal Fluid 0 %; Eosinophils,Peritoneal Fluid 0 %
[2021-12-16] MEDS: *HR* HYDROcodone/Acet 5/325 mg TABLET PO PRN (18:17)
[2021-12-16] MEDS: Insulin DETEMIR 100 UNIT/ML X5UNITS SUBQ SCH (21:47)
[2021-12-17] MEDS: hydrALAZINE 25 MG TABLET PO SCH ×3 (00:53→16:04)
[2021-12-17 02:32] LABS: Hematocrit 24.5 % (37.5-50.1); Hemoglobin 7.7 g/dL (12.9-16.9); Mean Corpuscular HGB Conc 31.4 g/dL (31.6-35.5); Mean Corpuscular Hemoglobin 27.9 pg (28.0-33.3); Mean Corpuscular Volume 88.8 fL (83.0-100.0); Mean Platelet Volume 8.8 fL (9.4-12.4); Platelet Count 187 K/mcL (140-400); Red Blood Count 2.76 M/mcL (4.19-5.50); Red Cell Distribution Width 15.8 % (11.5-14.5); White Blood Count 5.2 K/mcL (4.3-11.1)
[2021-12-17 02:49] LABS: Calcium 8.4 mg/dL (8.6-10.3); Potassium 4.7 mEq/L (3.5-5.1)
[2021-12-17] MEDS: Pantoprazole 40 MG VIAL IVP SCH ×2 (06:20→18:24)
[2021-12-17] MEDS: Insulin LISPRO 300 UNITS/3 ML VIAL SUBQ SCH ×3 (11:36→21:05)
[2021-12-17] MEDS: amLODIPine 5 MG TABLET PO SCH (11:36)
[2021-12-17] MEDS: Piperacillin/Tazobactam 3.375 GM in 0.9 % Sodium Chloride Mini Bag 100 ML IVPB SCH ×2 (11:51)
[2021-12-17] MEDS: Acetaminophen 325 MG TABLET PO PRN ×2 (11:52→17:52)
[2021-12-17 15:22] LABS: Hematocrit 18.9 % (37.5-50.1)
[2021-12-17 15:27] LABS: Hemoglobin 5.8 g/dL (12.9-16.9)
[2021-12-17] MEDS ORDERED: 0.9 % Sodium Chloride 250 ML IVC SCH (15:45)
[2021-12-17 16:29] LABS: Hematocrit 18.4 % (37.5-50.1)
[2021-12-17 16:31] LABS: Hemoglobin 5.7 g/dL (12.9-16.9)
[2021-12-17] MEDS: *HR* HYDROcodone/Acet 5/325 mg TABLET PO PRN ×2 (17:23→21:19)
[2021-12-17] MEDS: Albumin 25% 25gram/100mL 25 GM/100 ML IV.SOLN IVC SCH ×2 (18:21→21:20)
[2021-12-17] MEDS: Insulin DETEMIR 100 UNIT/ML X5UNITS SUBQ SCH (21:22)
[2021-12-17 22:30] LABS: Basophils % 0.3 %; Eosinophils % 0.1 %; Hematocrit 19.2 % (37.5-50.1); Hemoglobin 6.2 g/dL (12.9-16.9); Immature Granulocytes % 0.7 % (0-4); Lymphocytes # 0.5 K/mcL (0.6-4.6); Lymphocytes % 7.4 %; Mean Corpuscular HGB Conc 32.3 g/dL (31.6-35.5); Mean Corpuscular Hemoglobin 28.7 pg (28.0-33.3); Mean Corpuscular Volume 88.9 fL (83.0-100.0); Mean Platelet Volume 9.1 fL (9.4-12.4); Monocytes # 0.6 K/mcL (0.0-1.3); Monocytes % 8.8 %; Platelet Count 170 K/mcL (140-400); Red Blood Count 2.16 M/mcL (4.19-5.50); Red Cell Distribution Width 15.7 % (11.5-14.5); Segmented Neutrophils % 82.7 %; White Blood Count 7.3 K/mcL (4.3-11.1)
[2021-12-18] MEDS: hydrALAZINE 25 MG TABLET PO SCH ×2 (00:20→08:39)
[2021-12-18 00:33] LABS: Fluid Source for Albumin PERITONEAL FL
[2021-12-18] MEDS: Piperacillin/Tazobactam 3.375 GM in 0.9 % Sodium Chloride Mini Bag 100 ML IVPB SCH ×2 (00:41→18:20)
[2021-12-18 04:18] LABS: Basophils % 0.4 %; Eosinophils % 0.1 %; Hemoglobin 7.1 g/dL (12.9-16.9); Immature Granulocytes % 0.5 % (0-4); Lymphocytes # 0.8 K/mcL (0.6-4.6); Lymphocytes % 11.1 %; Mean Corpuscular HGB Conc 32.3 g/dL (31.6-35.5); Mean Corpuscular Hemoglobin 28.4 pg (28.0-33.3); Mean Platelet Volume 9.1 fL (9.4-12.4); Monocytes # 0.8 K/mcL (0.0-1.3); Neutrophils # 5.8 K/mcL (1.6-8.9); Nucleated Red Blood Cells 0.3 /100 WBC (0); Platelet Count 157 K/mcL (140-400); Red Cell Distribution Width 15.3 % (11.5-14.5); Segmented Neutrophils % 77.9 %; White Blood Count 7.5 K/mcL (4.3-11.1)
[2021-12-18 04:32] LABS: Albumin 3.1 g/dL (3.5-5.7); Albumin/Globulin Ratio 1.4 (1.1-2.2); Calcium 7.6 mg/dL (8.6-10.3); Globulin 2.2 g/dL (2.4-3.5); Potassium 5.3 mEq/L (3.5-5.1); Total Protein 5.3 g/dL (6.4-8.9)
[2021-12-18] MEDS: Pantoprazole 40 MG VIAL IVP SCH ×2 (06:37→18:21)
[2021-12-18] MEDS: Insulin LISPRO 300 UNITS/3 ML VIAL SUBQ SCH ×4 (08:40→22:09)
[2021-12-18] MEDS ORDERED: 0.9 % Sodium Chloride 250 ML IVC PRN (08:45)
[2021-12-18] MEDS: *HR* Dextrose 50 % in Water (Syg) 50 ML SYRINGE IVP PRN ×2 (08:56→15:44)
[2021-12-18] MEDS ORDERED: Vancomycin 1 EACH in 0.9 % Sodium Chloride 1 ML IVPB PRN (12:45)
[2021-12-18 15:21] LABS: Hematocrit 24.3 % (37.5-50.1); Hemoglobin 7.8 g/dL (12.9-16.9)
[2021-12-18 21:34] LABS: Hematocrit 20.7 % (37.5-50.1); Hemoglobin 6.7 g/dL (12.9-16.9)
[2021-12-19] MEDS: Piperacillin/Tazobactam 3.375 GM in 0.9 % Sodium Chloride Mini Bag 100 ML IVPB SCH ×3 (00:56→23:49)
[2021-12-19 05:02] LABS: Basophils % 0.6 %; Eosinophils # 0.1 K/mcL (0.0-0.6); Eosinophils % 0.8 %; Hematocrit 21.7 % (37.5-50.1); Immature Granulocytes % 0.1 % (0-4); Lymphocytes # 0.6 K/mcL (0.6-4.6); Lymphocytes % 7.8 %; Mean Corpuscular HGB Conc 32.3 g/dL (31.6-35.5); Mean Corpuscular Hemoglobin 28.9 pg (28.0-33.3); Mean Corpuscular Volume 89.7 fL (83.0-100.0); Mean Platelet Volume 9.5 fL (9.4-12.4); Monocytes # 0.5 K/mcL (0.0-1.3); Monocytes % 6.3 %; Neutrophils # 6.1 K/mcL (1.6-8.9); Platelet Count 167 K/mcL (140-400); Red Blood Count 2.42 M/mcL (4.19-5.50); Red Cell Distribution Width 15.8 % (11.5-14.5); Segmented Neutrophils % 84.4 %; White Blood Count 7.3 K/mcL (4.3-11.1)
[2021-12-19 05:13] LABS: INR 1.6; Prothrombin Time 17.4 Seconds (9.4-12.1)
[2021-12-19 05:18] LABS: Calcium 8.3 mg/dL (8.6-10.3); Magnesium 1.8 mg/dL (1.6-2.6)
[2021-12-19] MEDS: Pantoprazole 40 MG VIAL IVP SCH ×2 (06:29→17:15)
[2021-12-19] MEDS: Insulin LISPRO 300 UNITS/3 ML VIAL SUBQ SCH ×4 (08:39→21:35)
[2021-12-19] MEDS: amLODIPine 5 MG TABLET PO SCH (14:24)
[2021-12-19] MEDS: Bicalutamide 50 MG TABLET PO SCH (14:24)
[2021-12-19] MEDS: Acetaminophen 325 MG TABLET PO PRN (14:26)
[2021-12-19 16:50] LABS: Hematocrit 20.7 % (37.5-50.1); Hemoglobin 6.5 g/dL (12.9-16.9)
[2021-12-19] MEDS ORDERED: 0.9 % Sodium Chloride 250 ML IVC SCH (17:30)
[2021-12-19] MEDS ORDERED: 0.9 % Sodium Chloride 250 ML ONE (17:53)
[2021-12-19 21:44] LABS: Hematocrit 23.6 % (37.5-50.1); Hemoglobin 7.5 g/dL (12.9-16.9)
[2021-12-19] MEDS: *HR* HYDROcodone/Acet 5/325 mg TABLET PO PRN (22:11)
[2021-12-20 05:59] LABS: Basophils % 0.7 %; Eosinophils # 0.1 K/mcL (0.0-0.6); Eosinophils % 2.4 %; Hematocrit 24.3 % (37.5-50.1); Hemoglobin 7.7 g/dL (12.9-16.9); Immature Granulocytes % 0.2 % (0-4); Lymphocytes # 0.6 K/mcL (0.6-4.6); Lymphocytes % 11.7 %; Mean Corpuscular HGB Conc 31.7 g/dL (31.6-35.5); Mean Corpuscular Hemoglobin 28.4 pg (28.0-33.3); Mean Corpuscular Volume 89.7 fL (83.0-100.0); Mean Platelet Volume 9.2 fL (9.4-12.4); Monocytes # 0.4 K/mcL (0.0-1.3); Neutrophils # 4.1 K/mcL (1.6-8.9); Platelet Count 148 K/mcL (140-400); Red Blood Count 2.71 M/mcL (4.19-5.50); Red Cell Distribution Width 16.2 % (11.5-14.5); White Blood Count 5.4 K/mcL (4.3-11.1)
[2021-12-20 06:07] LABS: INR 1.4; Prothrombin Time 15.8 Seconds (9.4-12.1)
[2021-12-20 06:14] LABS: Calcium 7.7 mg/dL (8.6-10.3); Magnesium 1.9 mg/dL (1.6-2.6); Potassium 4.5 mEq/L (3.5-5.1)
[2021-12-20] MEDS: Pantoprazole 40 MG VIAL IVP SCH ×2 (07:03→17:09)
[2021-12-20] MEDS ORDERED: 0.9 % Sodium Chloride 250 ML IVC PRN (08:06)
[2021-12-20] MEDS: Insulin LISPRO 300 UNITS/3 ML VIAL SUBQ SCH ×4 (09:13→20:01)
[2021-12-20] MEDS: Acetaminophen 325 MG TABLET PO PRN ×2 (12:33→23:17)
[2021-12-20] MEDS: amLODIPine 5 MG TABLET PO SCH (12:52)
[2021-12-20] MEDS: Bicalutamide 50 MG TABLET PO SCH (12:52)
[2021-12-20] MEDS: Iron Sucrose Complex 200 MG in 0.9 % Sodium Chloride 100 ML IVPB SCH (13:50)
[2021-12-20] MEDS: Piperacillin/Tazobactam 3.375 GM in 0.9 % Sodium Chloride Mini Bag 100 ML IVPB SCH (14:07)
[2021-12-20] MEDS: hydrALAZINE 25 MG TABLET PO SCH ×2 (14:07→20:01)
[2021-12-20 17:44] LABS: Hematocrit 25.4 % (37.5-50.1); Hemoglobin 7.8 g/dL (12.9-16.9)
[2021-12-21] MEDS: Piperacillin/Tazobactam 3.375 GM in 0.9 % Sodium Chloride Mini Bag 100 ML IVPB SCH ×2 (00:12→15:08)
[2021-12-21] MEDS: *HR* HYDROcodone/Acet 5/325 mg TABLET PO PRN (02:23)
[2021-12-21 04:24] LABS: Calcium 7.9 mg/dL (8.6-10.3); Potassium 4.4 mEq/L (3.5-5.1)
[2021-12-21 04:56] LABS: Mean Corpuscular HGB Conc 31.7 g/dL (31.6-35.5); Mean Corpuscular Hemoglobin 28.7 pg (28.0-33.3); Mean Platelet Volume 9.6 fL (9.4-12.4); Platelet Count 141 K/mcL (140-400); Red Blood Count 2.65 M/mcL (4.19-5.50); Red Cell Distribution Width 16.4 % (11.5-14.5); White Blood Count 5.3 K/mcL (4.3-11.1)
[2021-12-21 04:57] LABS: Hemoglobin 7.6 g/dL (12.9-16.9); Mean Corpuscular Volume 90.6 fL (83.0-100.0)
[2021-12-21] MEDS: Pantoprazole 40 MG VIAL IVP SCH ×2 (05:06→18:00)
[2021-12-21 05:17] LABS: Calcium 7.9 mg/dL (8.6-10.3); Potassium 4.3 mEq/L (3.5-5.1)
[2021-12-21] MEDS: Insulin LISPRO 300 UNITS/3 ML VIAL SUBQ SCH ×4 (07:51→16:04)
[2021-12-21] MEDS: amLODIPine 5 MG TABLET PO SCH (07:52)
[2021-12-21] MEDS: Bicalutamide 50 MG TABLET PO SCH (07:52)
[2021-12-21] MEDS: hydrALAZINE 25 MG TABLET PO SCH ×3 (07:53→22:06)
[2021-12-21] MEDS: Acetaminophen 325 MG TABLET PO PRN ×2 (07:54→15:57)
[2021-12-21] MEDS: Iron Sucrose Complex 200 MG in 0.9 % Sodium Chloride 100 ML IVPB SCH (09:45)
[2021-12-21 18:47] LABS: Hematocrit 25.5 % (37.5-50.1)
[2021-12-22] MEDS: Piperacillin/Tazobactam 3.375 GM in 0.9 % Sodium Chloride Mini Bag 100 ML IVPB SCH ×2 (01:05→11:55)
[2021-12-22 05:19] LABS: Basophils % 0.8 %; Eosinophils # 0.1 K/mcL (0.0-0.6); Eosinophils % 1.4 %; Hematocrit 24.8 % (37.5-50.1); Hemoglobin 7.9 g/dL (12.9-16.9); Immature Granulocytes % 0.4 % (0-4); Lymphocytes # 0.6 K/mcL (0.6-4.6); Mean Corpuscular HGB Conc 31.9 g/dL (31.6-35.5); Mean Corpuscular Hemoglobin 28.5 pg (28.0-33.3); Mean Corpuscular Volume 89.5 fL (83.0-100.0); Mean Platelet Volume 9.4 fL (9.4-12.4); Monocytes # 0.5 K/mcL (0.0-1.3); Monocytes % 9.7 %; Neutrophils # 3.7 K/mcL (1.6-8.9); Platelet Count 148 K/mcL (140-400); Red Blood Count 2.77 M/mcL (4.19-5.50); Red Cell Distribution Width 16.2 % (11.5-14.5); Segmented Neutrophils % 74.7 %; White Blood Count 4.9 K/mcL (4.3-11.1)
[2021-12-22 05:55] LABS: Calcium 8.1 mg/dL (8.6-10.3); Potassium 4.7 mEq/L (3.5-5.1)
[2021-12-22] MEDS: Pantoprazole 40 MG VIAL IVP SCH ×2 (07:16→16:34)
[2021-12-22] MEDS: Insulin LISPRO 300 UNITS/3 ML VIAL SUBQ SCH ×4 (07:52→20:51)
[2021-12-22] MEDS: hydrALAZINE 25 MG TABLET PO SCH ×3 (09:04→20:51)
[2021-12-22] MEDS: amLODIPine 5 MG TABLET PO SCH (09:05)
[2021-12-22] MEDS: Bicalutamide 50 MG TABLET PO SCH (09:05)
[2021-12-23] MEDS: Piperacillin/Tazobactam 3.375 GM in 0.9 % Sodium Chloride Mini Bag 100 ML IVPB SCH ×2 (01:26→16:47)
[2021-12-23 04:35] LABS: Basophils % 0.6 %; Eosinophils # 0.1 K/mcL (0.0-0.6); Eosinophils % 1.3 %; Immature Granulocytes % 0.4 % (0-4); Lymphocytes # 0.8 K/mcL (0.6-4.6); Lymphocytes % 14.2 %; Mean Corpuscular Hemoglobin 28.5 pg (28.0-33.3); Mean Platelet Volume 9.5 fL (9.4-12.4); Monocytes # 0.5 K/mcL (0.0-1.3); Monocytes % 9.2 %; Platelet Count 160 K/mcL (140-400); Red Blood Count 2.81 M/mcL (4.19-5.50); Red Cell Distribution Width 16.7 % (11.5-14.5); Segmented Neutrophils % 74.3 %; White Blood Count 5.4 K/mcL (4.3-11.1)
[2021-12-23] MEDS: Pantoprazole 40 MG VIAL IVP SCH ×2 (04:47→16:46)
[2021-12-23 04:55] LABS: Calcium 8.1 mg/dL (8.6-10.3); Potassium 5.3 mEq/L (3.5-5.1)
[2021-12-23] MEDS: Bicalutamide 50 MG TABLET PO SCH (08:20)
[2021-12-23] MEDS: Insulin LISPRO 300 UNITS/3 ML VIAL SUBQ SCH ×4 (08:20→20:34)
[2021-12-23] MEDS: amLODIPine 5 MG TABLET PO SCH (08:21)
[2021-12-23] MEDS: hydrALAZINE 25 MG TABLET PO SCH ×3 (08:21→20:30)
[2021-12-23] MEDS ORDERED: 0.9 % Sodium Chloride 250 ML IVC PRN (08:55)
[2021-12-23] MEDS ORDERED: *HR* Heparin 10,000 UNIT/10 ML VIAL IV PRN (08:55)
[2021-12-23] MEDS: Acetaminophen 325 MG TABLET PO PRN (12:48)
[2021-12-24] MEDS: Piperacillin/Tazobactam 3.375 GM in 0.9 % Sodium Chloride Mini Bag 100 ML IVPB SCH (04:40)
[2021-12-24 05:23] LABS: Basophils # 0.1 K/mcL (0.0-0.2); Basophils % 0.9 %; Eosinophils # 0.1 K/mcL (0.0-0.6); Eosinophils % 1.3 %; Hemoglobin 8.4 g/dL (12.9-16.9); Immature Granulocytes % 0.4 % (0-4); Lymphocytes # 0.6 K/mcL (0.6-4.6); Lymphocytes % 11.8 %; Mean Corpuscular HGB Conc 31.1 g/dL (31.6-35.5); Mean Corpuscular Hemoglobin 27.9 pg (28.0-33.3); Mean Corpuscular Volume 89.7 fL (83.0-100.0); Mean Platelet Volume 9.7 fL (9.4-12.4); Monocytes # 0.5 K/mcL (0.0-1.3); Monocytes % 8.5 %; Neutrophils # 4.1 K/mcL (1.6-8.9); Platelet Count 167 K/mcL (140-400); Red Blood Count 3.01 M/mcL (4.19-5.50); Red Cell Distribution Width 16.8 % (11.5-14.5); Segmented Neutrophils % 77.1 %; White Blood Count 5.3 K/mcL (4.3-11.1)
[2021-12-24 05:39] LABS: Calcium 8.2 mg/dL (8.6-10.3); Potassium 4.9 mEq/L (3.5-5.1)
[2021-12-24] MEDS: Insulin LISPRO 300 UNITS/3 ML VIAL SUBQ SCH ×4 (08:59→23:35)
[2021-12-24] MEDS: Bicalutamide 50 MG TABLET PO SCH (09:05)
[2021-12-24] MEDS: amLODIPine 5 MG TABLET PO SCH (09:05)
[2021-12-24] MEDS: hydrALAZINE 25 MG TABLET PO SCH ×3 (09:08→20:35)
[2021-12-24] MEDS: Acetaminophen 325 MG TABLET PO PRN ×2 (12:37→20:34)
[2021-12-24] MEDS: Cefepime HCl 2,000 MG in 0.9 % Sodium Chloride Mini Bag 100 ML IVP SCH (16:37)
[2021-12-25] MEDS: Cefepime HCl 2,000 MG in 0.9 % Sodium Chloride Mini Bag 100 ML IVP SCH (05:49)
[2021-12-25] MEDS: hydrALAZINE 25 MG TABLET PO SCH ×3 (08:37→20:06)
[2021-12-25] MEDS: amLODIPine 5 MG TABLET PO SCH (08:38)
[2021-12-25] MEDS: Bicalutamide 50 MG TABLET PO SCH (08:38)
[2021-12-25] MEDS: Insulin LISPRO 300 UNITS/3 ML VIAL SUBQ SCH ×4 (08:38→20:06)
[2021-12-25] MEDS: Acetaminophen 325 MG TABLET PO PRN (08:39)
[2021-12-25] MEDS ORDERED: *HR* Heparin 10,000 UNIT/10 ML VIAL IV PRN (09:26)
[2021-12-25] MEDS ORDERED: 0.9 % Sodium Chloride 250 ML IVC PRN (09:26)
[2021-12-25 12:27] LABS: Mean Corpuscular Hemoglobin 27.6 pg (28.0-33.3); Mean Platelet Volume 9.4 fL (9.4-12.4)
[2021-12-25 12:29] LABS: Eosinophils # 0.1 K/mcL (0.0-0.6); Hematocrit 25.5 % (37.5-50.1); Mean Corpuscular HGB Conc 31.4 g/dL (31.6-35.5); Mean Corpuscular Volume 87.9 fL (83.0-100.0); Monocytes # 0.1 K/mcL (0.0-1.3); Platelet Count 157 K/mcL (140-400); Red Cell Distribution Width 16.8 % (11.5-14.5); White Blood Count 1.3 K/mcL (4.3-11.1)
[2021-12-25 13:35] LABS: Anisocytosis 1+ (Not Present); Basophilic Stippling 1+ (Not Present); Lymphocytes # 0.8 K/mcL (0.6-4.6); Neutrophils # 0.4 K/mcL (1.6-8.9); Platelet Estimate Normal (Normal)
[2021-12-25] MEDS: Cefepime HCl 1,000 MG in 0.9 % Sodium Chloride Mini Bag 100 ML IVPB SCH (17:41)
[2021-12-26 02:18] LABS: Calcium 8.2 mg/dL (8.6-10.3); Potassium 4.9 mEq/L (3.5-5.1)
[2021-12-26] MEDS: Acetaminophen 325 MG TABLET PO PRN ×3 (03:23→20:06)
[2021-12-26] MEDS: hydrALAZINE 25 MG TABLET PO SCH ×3 (07:53→20:05)
[2021-12-26] MEDS: Bicalutamide 50 MG TABLET PO SCH (07:57)
[2021-12-26] MEDS: Insulin LISPRO 300 UNITS/3 ML VIAL SUBQ SCH ×4 (08:02→20:10)
[2021-12-26 17:10] LABS: Influenza A PCR Negative (Negative); Influenza B PCR Negative (Negative); Resp. Syncytial Virus PCR Negative (Negative)
[2021-12-26 17:26] LABS: SARS-CoV-2 by PCR (In House) Negative (Negative)
[2021-12-26] MEDS: Cefepime HCl 1,000 MG in 0.9 % Sodium Chloride Mini Bag 100 ML IVPB SCH (18:32)
[2021-12-26 19:18] VITALS: BP 175/90; PULSE 76; TEMP 97.4; O2SAT 99
[2021-12-27] MEDS ORDERED: Cefepime HCl 2,000 MG in 0.9 % Sodium Chloride Mini Bag 100 ML IVPB SCH (16:00)
== END 2021-12-26 20:30 | disposition critical access hospital (66) | DRG 629 ==
LOC: EMEROOARM 09:11 → SUATTDRO 15:31 → 2ANU 15:31 → 2NNU 12-06 16:09 → 2ANU 12-07 12:13 → 2NNU 12-17 17:16 → 2ANU 12-21 15:08
PROVIDERS: ADMIT Internal Medicine; ATTEND Internal Medicine
PROC: ENDOEBX (2021-12-14 08:00)
PROC: IRLIVER (2021-12-17 12:00)